=== PATIENT | female | born 1930 | race Caucasian/White ===

== ENCOUNTER 2016-12-05 09:44 | Outpatient (CLI) ==
[2013-04-11 15:55] VITALS: BMI 25.1
[2013-04-13 06:30] VITALS: TEMP 96.9
[2016-12-05 10:11] LABS: BILIRUBIN,URINE Negative (NEGATIVE); KETONES,URINE Negative (NEGATIVE); LEUKOCYTE ESTERASE ,URINE 1+ (NEGATIVE); NITRITE,URINE Positive (NEGATIVE); PH,URINE 6.5 (5-9); PROTEIN,URINE Negative (NEGATIVE); URINE, BLOOD Trace-intact (NEGATIVE)
[2016-12-05 10:12] LABS: ADD URINE MICROSCOPIC YES
[2016-12-05 10:21] LABS: BACTERIA,URINE 2+ (NOT PRESENT)
== END 2016-12-05 09:45 | disposition home or self-care (01) ==
LOC: NONPT 09:44
PROVIDERS: ATTEND Internal Medicine
DX: R41.82 Altered mental status, unspecified (principal); Z79.899 Other long term (current) drug therapy
CPT/HCPCS: 81001; 87086; 87186

== ENCOUNTER 2017-12-04 11:26 | Outpatient (CLI) ==
[2013-04-11 15:55] VITALS: BMI 25.1
[2013-04-13 06:30] VITALS: TEMP 96.9
== END 2017-12-04 11:27 | disposition home or self-care (01) ==
LOC: NONPT 11:26
PROVIDERS: ATTEND Internal Medicine
DX: D64.9 Anemia, unspecified (principal); N18.9 Chronic kidney disease, unspecified; M47.9 Spondylosis, unspecified; Z20.89 Contact with and (suspected) exposure to other communicable diseases
CPT/HCPCS: 81001; 87086

== ENCOUNTER 2019-02-26 18:45 | Emergency (ER) ==
[2019-02-26 19:00] VITALS: BP 140/83; TEMP 97.3; BMI 21.2
--- NOTE | 2019-02-26 19:07 | ED.PDOC ---
General ED Provider: Dr. CORNELIA CUEVAS Chief Complaint: Fall Stated Complaint: 89 yold pat fell forward in a wheelcair,NO LOC,witnessed, Smal lac on thetop of nasal ridge.No active blled.Septum intact.No ano other or clear drainageFace and orbits nornal,No bruising or major swelling.Breathing and speech normal, Time Seen by Physician: 18:55 Information Source: Patient, [facility] Exam Limitations: No limitations Primary Care Provider: TONYA COLLIER Nursing and Triage Documentation Reviewed and Agree: Yes Does patient meet sepsis criteria?: No System Inflammatory Response Syndrome: Not Applicable Sepsis Protocol: For patient's 13 years and over: Temp is 96.8 and below OR 101 and greater Pulse >90 BPM Resp >20/minute Acutely Altered Mental Status Are patient's symptoms suggestive of a new infection, such as: -Pneumonia -Skin, Soft Tissue -Endocarditis -UTI -Bone, Joint Infection -Implantable Device -Acute Abdominal Infection -Wound Infection -Meningitis -Blood Stream Catheter Infection -Unknown Trauma/Injury Complaint Exam - Facial Injury Complaint/Exam Location of Pain: Reports: Nose Mechanism of Injury: Reports: Trauma Onset/Duration: today Symptoms Are: Still present Onset of Pain: Reports: Immediate Initial Severity: Mild Current Severity: Mild Location: Reports: Discrete Character: Reports: Aching Alleviating: Reports: Rest Aggravating: Reports: None Associated Signs and Symptoms: Reports: Swelling Facial Findings: Present: Normal findings Differential Diagnoses: Laceration Review of Systems - Review Of Systems Constitutional: Denies: No symptoms Eyes: Reports: Photophobia Ears, Nose, Mouth, Throat: Reports: Nose pain Respiratory: Reports: No symptoms Cardiac: Reports: No symptoms GI: Reports: No symptoms : Reports: No symptoms Musculoskeletal: Reports: No symptoms Neurological: Reports: No symptoms Endocrine: Reports: No symptoms Hematologic/Lymphatic: Reports: No symptoms All Other Systems: Reviewed and Negative Past Medical History - Past Medical History Previously Healthy: Yes Endocrine: Reports: Unknown Cardiovascular: Reports: None Respiratory: Reports: None Hematological: Reports: None Gastrointestinal: Reports: None Genitourinary: Reports: None Neuro/Psych: Reports: None Musculoskeletal: Reports: None Cancer: Reports: None Last Menstrual Period: na - Surgical History General Surgical History: Reports: None - Family History Family History: Reports: None - Social History Smoking Status: Never smoker Hx Substance Use: No Alcohol Screening: None - Immunizations Tetanus Shot up to Date: No (unknown) Physical Exam - Physical Exam Appearance: Well-appearing Ill-appearing: None Pain Distress: None Eyes: DELMER ENT: Ears normal Neck: Supple Respiratory: Airway patent Cardiovascular: RRR, Pulses normal GI/: Soft Musculoskeletal: Normal strength Skin: Warm Neurological: Sensation intact Psychiatric: Affect appropriate Critical Care Note - Critical Care Note Total Time (mins): 0 Course - Course Hematology/Chemistry: 02/26/19 19:22 02/26/19 19:22 Orders, Labs, Meds: Lab Review 02/26/19 02/26/19 02/26/19 19:20 19:22 19:22 WBC 7.06 RBC 3.40 L Hgb 10.0 L Hct 32.5 L MCV 95.6 MCH 29.4 MCHC 30.8 L RDW Coeff of Cecilia 13.3 Plt Count 243 Immature Gran % (Auto) 0.6 Neut % (Auto) 77.6 Lymph % (Auto) 12.9 Aurora % (Auto) 7.1 Eos % (Auto) 1.4 Baso % (Auto) 0.4 Immature Gran # (Auto) 0.0 Neut # (Auto) 5.5 Lymph # (Auto) 0.9 Aurora # (Auto) 0.5 Eos # (Auto) 0.1 Baso # (Auto) 0.0 Sodium 138.4 Potassium 4.05 Chloride 104.3 Carbon Dioxide 25.2 Anion Gap 12.95 BUN 35.0 H Creatinine 1.23 Estimated GFR (MDRD) 41.00 BUN/Creatinine Ratio 28.45 Glucose 128.6 H Calcium 9.01 Total Bilirubin 0.37 AST 21.0 ALT 14.3 Alkaline Phosphatase 113.3 Troponin I < 0.012 Total Protein 6.54 Albumin 4.12 Globulin 2.42 Albumin/Globulin Ratio 1.70 Orders Category Date Time Status EKG-(ED ONLY) Stat CARDIO 02/26/19 19:10 Completed CBC W/ AUTO DIFF Stat LAB 02/26/19 19:22 Completed CMP [COMPREHENSIVE METABOLIC PANEL] Stat LAB 02/26/19 19:22 Completed TROPONIN I Stat LAB 02/26/19 19:20 Completed URINALYSIS C & S IF INDICATED Stat LAB 02/26/19 19:[address] HEAD W/O CONTRAST Stat RADS 04/30/19 19:[address] MAXILLOFACIAL W/O CONTRAST Stat RADS 02/26/19 19:07 Taken Vital Signs: Temp Pulse Resp BP Pulse Ox 02/26/19 18:46 97.3 F L 71 20 140/83 96 Departure - Departure Time of Disposition: 20:53 Disposition: HOME SELF-CARE Discharge Problem: Fall Instructions: Fall Prevention for Older Adults (ED) Condition: Good Pt referred to PMD for follow-up: Yes IPMP verified?: No Allergies/Adverse Reactions: Allergies pravastatin [From Pravachol] Adverse Reaction (Verified 02/26/19 19:17) rosuvastatin [From Crestor] Adverse Reaction (Verified 02/26/19 19:17) Home Medications: Ambulatory Orders Amlodipine Besylate [Norvasc] 10 mg PO BID 04/11/13 Aspirin [Aspirin Chewable] 81 mg PO DAILY 04/11/13 Ferrous Sulfate 325 mg PO DAILY 04/11/13 Losartan/Hydrochlorothiazide [Losartan-Hctz 100-12.5 mg Tab] 1 tab PO DAILY Acetaminophen [Mapap] 500 mg PO Q6HR PRN 02/26/19 Bisacodyl [Dulcolax] 10 mg RC DAILY PRN 02/26/19 Clonidine HCl [Catapres] 0.3 mg PO BID 02/26/19 Dextran 70/Hypromellose [Artificial Tears Eye Drops] 4 drop EACHEYE DIRECTED PRN 02/26/19 Docusate Sodium [Colace] 100 mg PO BID 02/26/19 Magnesium Hydroxide [Milk of Magnesia] 30 ml PO DAILY PRN 02/26/19 Metoprolol Succinate 100 mg PO DAILY 02/26/19 Disposition Discussed With: Patient, Family
--- NOTE | 2019-02-26 20:05 | CT ---
EXAM: CT scan brain without contrast HISTORY: Fall COMPARISON: MRI brain 04/12/2013 FINDINGS: Contiguous axial images obtained from the skull base to the convexities without contrast u tilizing 5-mm collimation. Sagittal and coronal reconstructions were imaged and reviewed.. The vent ricles and CSF spaces are prominent compatible with age appropriate atrophy. There is periventricula r hypodensity noted compatible with chronic microvascular disease.. Mineralization is seen in the bi lateral basal ganglia. There is a partially empty sella. Atherosclerotic changes are seen involving the bilateral vertebral and cavernous internal carotid arteries. The visual this paranasal sinuses and mastoid air cells are clear. Findings compatible with hyperostosis frontalis interna are noted.. 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
--- NOTE | 2019-02-26 21:11 | CT ---
EXAM: CT scan facial bones HISTORY: Trauma COMPARISON: None. FINDINGS: Contiguous axial images obtained through the facial bones without contrast utilizing 3-mm collimation. Sagittal and coronal reconstructions were imaged and reviewed Orbital structures are i ntact. Mucoperiosteal thickening is seen within the right maxillary sinus. . Soft tissue swelling i s seen in relation to the nose. There are nondisplaced bilateral nasal bone fractures. IMPRESSION: Nondisplaced bilateral nasal bone fractures with surrounding soft tissue swelling
== END 2019-02-26 21:23 | disposition home or self-care (01) ==
LOC: ED 18:45
DX: S01.21XA Laceration without foreign body of nose, initial encounter (principal); W05.0XXA Fall from non-moving wheelchair, initial encounter
CPT/HCPCS: 36415; 80053; 84484; 85025; 93005; 93010; 99283

== ENCOUNTER 2019-03-23 19:39 | Outpatient (CLI) ==
[2013-04-13 06:30] VITALS: TEMP 96.9
[2019-03-24 00:12] VITALS: BMI 23.6
== END 2019-03-23 19:45 | disposition short-term general hospital (02) ==
LOC: AMBL 19:39
PROVIDERS: ATTEND Internal Medicine Geriatric Medicine
DX: R55 Syncope and collapse (principal)

== ENCOUNTER 2019-03-23 20:01 | Inpatient (IN) ==
[2019-03-23] MEDS ORDERED: SODIUM CHLORIDE 1,000 ML IV STA (20:02)
--- NOTE | 2019-03-23 20:05 | ED.PDOC ---
General ED Provider: Dr. BOB UNDERWOOD Chief Complaint: Syncope Stated Complaint: Patient is an 89 year old female who comes to the ER sent by her PCP from the [facility] after she was noted to have one episode of unresponsiveness that lasted only few secounds. She has dementia and is a poor historian. [facility] staff did not witness any seizure activity. Has been her normal self all day. Time Seen by Physician: 20:03 Mode of Arrival: Ambulance Information Source: [facility] Exam Limitations: Dementia Primary Care Provider: TONYA COLLIER Nursing and Triage Documentation Reviewed and Agree: Yes Does patient meet sepsis criteria?: No System Inflammatory Response Syndrome: Not Applicable Sepsis Protocol: For patient's 13 years and over: Temp is 96.8 and below OR 101 and greater Pulse >90 BPM Resp >20/minute Acutely Altered Mental Status Are patient's symptoms suggestive of a new infection, such as: -Pneumonia -Skin, Soft Tissue -Endocarditis -UTI -Bone, Joint Infection -Implantable Device -Acute Abdominal Infection -Wound Infection -Meningitis -Blood Stream Catheter Infection -Unknown Review of Systems - Review Of Systems Constitutional: Denies: Chills Cardiac: Reports: Lightheadedness, Syncope All Other Systems: Other (Limited due to dementia) Past Medical History - Past Medical History Previously Healthy: Yes Endocrine: Reports: Unknown Cardiovascular: Reports: Hypertension Respiratory: Reports: None Hematological: Reports: Anemia Gastrointestinal: Reports: GERD, Other (dysphagia ) Genitourinary: Reports: CKD Neuro/Psych: Reports: Anxiety, Dementia Musculoskeletal: Reports: None, Other (spondylosis) Cancer: Reports: None Other Pertinent Past Medical History: macular degeneration - Surgical History General Surgical History: Reports: Unknown - Family History Family History: Reports: None - Social History Smoking Status: Never smoker Hx Substance Use: No Alcohol Screening: None Physical Exam - Physical Exam Appearance: Well-appearing Ill-appearing: None Pain Distress: None Eyes: DELMER (on the left, Catract and opacity on the right ) Neck: Supple Respiratory: Airway patent, Breath sounds clear, Breath sounds equal, Respirations nonlabored Cardiovascular: Bradycardia GI/: Soft Skin: Warm, Dry Psychiatric: Anxious Interpretation - Seamless Hosiery Knitter Time of Seamless Hosiery Knitter Interpretation: 20:00 Rate: John Paul Rhythm: Sinus - EKG Interpretation Time of EKG #1: 20:07 Rate: John Paul Rhythm: Sinus Ectopy: None Blaine: Left 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 Collier Time of Notification: 22:00 (ok to admit. ) Critical Care Note - Critical Care Note Total Time (mins): 35 Course - Course Hematology/Chemistry: 03/23/19 20:20 03/23/19 20:20 Orders, Labs, Meds: Lab Review 03/23/19 03/23/19 03/23/19 20:20 20:20 20:20 WBC 8.72 RBC 3.41 L Hgb 10.2 L Hct 32.9 L MCV 96.5 MCH 29.9 MCHC 31.0 L RDW Coeff of Cecilia 13.7 Plt Count 195 Immature Gran % (Auto) 0.5 Neut % (Auto) 78.3 Lymph % (Auto) 12.8 Swain % (Auto) 6.2 Eos % (Auto) 1.6 Baso % (Auto) 0.6 Immature Gran # (Auto) 0.0 Neut # (Auto) 6.8 Lymph # (Auto) 1.1 Swain # (Auto) 0.5 Eos # (Auto) 0.1 Baso # (Auto) 0.1 Sodium 138.9 Potassium 3.95 Chloride 102.2 Carbon Dioxide 28.6 Anion Gap 12.05 BUN 42.0 H Creatinine 1.21 Estimated GFR (MDRD) 42.00 BUN/Creatinine Ratio 34.71 Glucose 135.7 H Lactic Acid 1.59 Calcium 9.11 Total Bilirubin 0.46 AST 22.0 ALT 16.9 Alkaline Phosphatase 111.9 Total Creatine Kinase < 20.0 L Troponin I < 0.012 NT-Pro-B Natriuret Pep Total Protein 6.41 Albumin 3.83 Globulin 2.58 Albumin/Globulin Ratio 1.48 Procalcitonin 03/23/19 03/23/19 20:20 20:20 WBC RBC Hgb Hct MCV MCH MCHC RDW Coeff of Cecilia Plt Count Immature Gran % (Auto) Neut % (Auto) Lymph % (Auto) Swain % (Auto) Eos % (Auto) Baso % (Auto) Immature Gran # (Auto) Neut # (Auto) Lymph # (Auto) Swain # (Auto) Eos # (Auto) Baso # (Auto) Sodium Potassium Chloride Carbon Dioxide Anion Gap BUN Creatinine Estimated GFR (MDRD) BUN/Creatinine Ratio Glucose Lactic Acid Calcium Total Bilirubin AST ALT Alkaline Phosphatase Total Creatine Kinase Troponin I NT-Pro-B Natriuret Pep 1490.000 H Total Protein Albumin Globulin Albumin/Globulin Ratio Procalcitonin < 0.05 Orders Category Date Time Status EKG-(ED ONLY) Stat CARDIO 03/23/19 20:02 Completed ED GLOBAL ENGINEERING MANAGER APPLIED .ONCE EMERGENCY 03/23/19 20:02 Active ED IV/MEDIPORT/POWERPORT .ONCE EMERGENCY 03/23/19 20:02 Active CBC W/ AUTO DIFF Stat LAB 03/23/19 20:20 Completed COMPREHENSIVE METABOLIC PANEL Stat LAB 03/23/19 20:20 Completed CREATINE KINASE Stat LAB 03/23/19 20:20 Completed LACTIC ACID Stat LAB 03/23/19 20:20 Completed NT-PROBNP Stat LAB 03/23/19 20:20 Completed PROCALCITONIN Stat LAB 03/23/19 20:20 Completed TROPONIN I Stat LAB 03/23/19 20:20 Completed 0.9 % Sodium Chloride [Saline Flush] MEDS 03/23/19 20:02 Ordered 1 syr IVF PRN PRN Sodium Chloride 0.9% [Sodium Chloride] 1,000 ml MEDS 03/23/19 20:02 Active IV 125 mls/hr CHEST, 1V AP ONLY Stat RADS 03/23/19 20:[address] HEAD W/O CONTRAST Stat RADS 03/23/19 20:02 Completed Medications Generic Name Dose Route Start Last Admin Trade Name Freq PRN Reason Stop Dose Admin Sodium Chloride 1,000 mls @ 125 mls/hr 03/23/19 20:02 03/23/19 20:45 Sodium Chloride IV 03/24/19 04:01 125 mls/hr .Q8H STA Administration Sodium Chloride 1 syr 03/23/19 20:02 03/23/19 20:46 Saline Flush IVF 1 syr PRN PRN Administration To flush IV Vital Signs: Temp Pulse Resp BP Pulse Ox 03/23/19 20:01 97.5 F L 56 L 18 124/55 L 95 Departure - Departure Time of Disposition: 22:50 Disposition: TSF SHORT-TRM HOSP Discharge Problem: Syncope Condition: Stable Pt referred to PMD for follow-up: Yes IPMP verified?: No Allergies/Adverse Reactions: Allergies pravastatin [From Pravachol] Adverse Reaction (Verified 03/23/19 20:15) rosuvastatin [From Crestor] Adverse Reaction (Verified 03/23/19 20:15) Home Medications: Ambulatory Orders Amlodipine Besylate [Norvasc] 10 mg PO DAILY 04/11/13 Aspirin [Aspirin Chewable] 81 mg PO DAILY 04/11/13 Losartan/Hydrochlorothiazide [Losartan-Hctz 100-12.5 mg Tab] 1 tab PO DAILY Acetaminophen [Mapap] 500 mg PO Q6HR PRN 02/26/19 Bisacodyl [Dulcolax] 10 mg RC DAILY PRN 02/26/19 Clonidine HCl [Catapres] 0.3 mg PO BID 02/26/19 Magnesium Hydroxide [Milk of Magnesia] 30 ml PO DAILY PRN 02/26/19 Metoprolol Succinate [Toprol Xl] 100 mg PO DAILY 03/23/19 Polyvinyl Alcohol [Artificial Tears Opth Mandie] 4 drop EACHEYE DIRECTED PRN Disposition Discussed With: Family
--- NOTE | 2019-03-23 20:47 | CT ---
EXAM: CT brain without contrast HISTORY: Syncope TECHNIQUE: CT of the brain without intravenous contrast FINDINGS: There is no acute hemorrhage midline shift or mass effect. No hydrocephalus or abnormal e xtra-axial fluid collection. Generalized involutional atrophy, moderate. Chronic microvascular thompson ges white matter tracts, severe. No acute large vessel territorial infarct is seen. Prominent basil ganglia mineralization. The bony cranium appears normal. The visualized paranasal sinuses are otilia r. Soft tissues without significant abnormality. IMPRESSION: 1. Chronic changes as described. No acute intracranial abnormality is seen.
--- NOTE | 2019-03-23 22:10 | DI ---
EXAM: Portable chest HISTORY: Syncope COMPARISON: Two-view chest 04/11/2013 FINDINGS: The patient is mildly rotated to the left. The heart is normal in size. Atherosclerotic changes are seen involving the aortic arch. Minimal opacity is noted at the left lung base which may be atelectasis and/or pneumonia. They are benign granulomatous changes. IMPRESSION: ASVD. Minimal left basilar opacity which to atelectasis and/or pneumonia
[2019-03-23] MEDS ORDERED: MILK OF MAGNESIA PO PRN (22:42)
[2019-03-23] MEDS ORDERED: DULCOLAX RC PRN (22:42)
[2019-03-23] MEDS ORDERED: TYLENOL PO PRN (22:42)
[2019-03-23] MEDS ORDERED: ARTIFICIAL TEARS OPTH SOL OP PRN (22:42)
[2019-03-24 00:12] VITALS: BMI 23.6
[2019-03-24] MEDS ORDERED: CATAPRES PO SCH (09:00)
[2019-03-24] MEDS ORDERED: NORVASC PO SCH (09:00)
[2019-03-24] MEDS ORDERED: NON-FORMULARY MEDICATION (Metoprolol Succinate [Toprol Xl] 100 MG) PO SCH (09:00)
[2019-03-24] MEDS ORDERED: LOVENOX SUBCUT SCH (09:00)
[2019-03-24] MEDS ORDERED: NON-FORMULARY MEDICATION (Losartan/Hydrochlorothiazide [Losartan-Hctz 100-12.5 Mg Tab] 1 T PO SCH (09:00)
[2019-03-24] MEDS: LOVENOX SUBCUT SCH (09:25)
[2019-03-24] MEDS ORDERED: NON-FORMULARY MEDICATION (Clonidine Hcl [Clonidine Hcl] 0.3 MG) PO SCH (10:30)
[2019-03-24] MEDS ORDERED: NON-FORMULARY MEDICATION (Amlodipine Besylate [Norvasc] 10 MG) PO SCH (10:30)
[2019-03-24] MEDS ORDERED: NON-FORMULARY MEDICATION (Losartan/Hydrochlorothiazide [Hyzaar 100-25 Tablet] 1 EACH) PO SCH (11:15)
[2019-03-24] MEDS: ASPIRIN CHEWABLE PO SCH (11:23)
[2019-03-24] MEDS ORDERED: DULCOLAX RC PRN (11:30)
[2019-03-24] MEDS ORDERED: MILK OF MAGNESIA PO PRN (11:30)
[2019-03-24] MEDS: CATAPRES PO SCH (23:59)
[2019-03-25] MEDS ORDERED: ASPIRIN CHEWABLE PO SCH (08:00)
[2019-03-25] MEDS: HYZAAR 50-12.5 MG TAB PO SCH (09:19)
[2019-03-25] MEDS: CATAPRES PO SCH ×2 (09:19→21:48)
[2019-03-25] MEDS: ASPIRIN CHEWABLE PO SCH (09:19)
[2019-03-25] MEDS: NORVASC PO SCH (09:19)
[2019-03-25] MEDS: TOPROL XL PO SCH (09:19)
[2019-03-25] MEDS: LOVENOX SUBCUT SCH (09:20)
[2019-03-25] MEDS ORDERED: ROCEPHIN 1 GM in SODIUM CHLORIDE 50 ML IM SCH (12:30)
[2019-03-25] MEDS ORDERED: ROCEPHIN 1 GM in SODIUM CHLORIDE 50 ML IV SCH (12:30)
[2019-03-25] MEDS ORDERED: ROCEPHIN ONE (15:21)
[2019-03-25] MEDS ORDERED: LIDOCAINE HCL 1% SDV ONE (15:22)
[2019-03-25] MEDS ORDERED: LIDOCAINE HCL 1% SDV IM STA (15:26)
[2019-03-25] MEDS: SODIUM CHLORIDE 1,000 ML IV SCH (15:26)
[2019-03-25] MEDS: ROCEPHIN IM SCH (15:28)
[2019-03-26 06:08] VITALS: BP 122/72; TEMP 98.4
[2019-03-26] MEDS: ASPIRIN CHEWABLE PO SCH (09:36)
[2019-03-26] MEDS: HYZAAR 50-12.5 MG TAB PO SCH (09:36)
[2019-03-26] MEDS: TOPROL XL PO SCH (09:37)
[2019-03-26] MEDS: CATAPRES PO SCH ×2 (09:37→20:59)
[2019-03-26] MEDS: NORVASC PO SCH (09:37)
[2019-03-26] MEDS: ROCEPHIN IM SCH (09:38)
[2019-03-26] MEDS: LIDOCAINE HCL 1% SDV IM SCH (09:38)
[2019-03-26] MEDS: LOVENOX SUBCUT SCH (09:39)
--- NOTE | 2019-03-26 10:24 | PCM.PROG ---
Attending Provider: ATTENDING PROVIDER: Dr. TONYA COLLIER This patient is seen with Renu Sexton, Nurse Practitioner. DATE OF SERVICE: 03/26/19 SUBJECTIVE: This 89 year old WHITE/ F was hospitalized 03/23/19. The patient is resting comfortably. The patient has advancing dementia and will not leave IV site alone. Will do carotid scan today. REVIEW OF SYSTEMS: CONSTITUTIONAL: Weakness. No night sweats. No malaise, lethargy. No fever or chills. HEENT: Eyes: No visual changes. No eye pain. No eye discharge. ENT: No runny nose. No epistaxis. No sinus pain. No odynophagia. No congestion. RESPIRATORY: No cough, no congestion. No hemoptysis. No shortness of breath. CARDIOVASCULAR: No angina symptoms. No CHF symptoms. No atypical chest pain for CAD. No palpitations. No orthopnea.. GASTROINTESTINAL: No abdominal pain. No nausea or vomiting. No diarrhea or constipation. No hematemesis. No hematochezia. GENITOURINARY: No urgency. No frequency. No dysuria. No hematuria. No obstructive symptoms. No discharge. No pain. No significant abnormal bleeding. MUSCULOSKELETAL: No musculoskeletal pain; no joint swelling. NEUROLOGICAL: Awake, confusion. No headache. No neck pain. No syncope. No seizures. No dizziness. PSYCHIATRIC: Anxious. No depression. No suicidal thoughts. No homicidal thoughts. SKIN: No rash. No lesions. No wounds. ENDOCRINE: No unexplained weight loss. No weight gain. HEMATOLOGIC/LYMPHATIC: No anemia. No purpura. No petechiae. No prolonged or excessive bleeding. No palpable lymph nodes. PHYSICAL EXAMINATION: GENERAL: The patient is awake, alert, disoriented lying in bed in no distress. VITAL SIGNS: Temperature 98.4 F, Pulse 80, Respiratory Rate 18, BP 122/72, Pulse Ox 97% HEENT: Head normocephalic, atraumatic. Eyes: Extraocular muscles are intact. Pupils are equal, round and reactive to light and accommodation. Ears: No lesions. Nose appeared normal. Throat: No exudate or erythema. NECK: Supple. No JVD, no carotid bruit. No lymphadenopathy or thyromegaly. LUNGS: Diminished breath sounds. Clear to auscultation. Percussion note normal. Chest symmetrical. HEART: S1, S2, no S3. Grade I/ systolic murmur. No cyanosis or clubbing. No ascites. Pulses: Dorsalis pedis and posterior tibial pulses +1 to +2 both sides. ABDOMEN: Soft. Non-tender. Bowel sounds active. No CVA tenderness. No mass felt. EXTREMITIES: No edema. Full range of motion of all extremities, equal. NEUROLOGIC: No focal deficit. Cranial nerves II through XII are grossly intact. No headache, no double vision or headache. SKIN: Not dry. Intact. Turgor-normal. LYMPHATIC: No palpable lymph nodes/no lymphedema. MUSCULOSKELETAL: Normal joints with no swelling. Muscle tone is normal. LAB REVIEW: 03/26/19 05:00 03/26/19 05:00 03/26/19 05:00: Sodium 139.4, Potassium 4.10, Chloride 103.0, Carbon Dioxide 29.2, Anion Gap 11.30, BUN 19.6 H, Creatinine 1.11, Estimated GFR (MDRD) 46.00, BUN/Creatinine Ratio 17.65, Glucose 110.9 H, Calcium 9.31, Total Bilirubin 0.52 , AST 23.0, ALT 15.4, Alkaline Phosphatase 115.2, Total Protein 6.84, Albumin 3.99, Globulin 2.85, Albumin/Globulin Ratio 1.40 03/26/19 05:00: WBC 7.91, RBC 3.72 L, Hgb 11.2 L, Hct 35.8 L, MCV 96.2, MCH 30.1 , MCHC 31.3 L, RDW Coeff of Cecilia 13.2, Plt Count 220, Immature Gran % (Auto) 0.4 , Neut % (Auto) 71.1, Lymph % (Auto) 19.8, Edwards % (Auto) 5.9, Eos % (Auto) 2.3, Baso % (Auto) 0.5, Immature Gran # (Auto) 0.0, Neut # (Auto) 5.6, Lymph # (Auto ) 1.6, Edwards # (Auto) 0.5, Eos # (Auto) 0.2, Baso # (Auto) 0.0 ASSESSMENT: 1. UTI - E. coli. 2. Questionable syncopal episode. 3. Hypertension. 4. Dementia with behavioral disturbances. PLAN: 1. Continue IM Rocephin. 2. Carotid scan. Plan and coordination of the patient's care discussed in the presence of Cotton Program Technician and nurse. CONDITION: Stable SCRIBED BY: STEPHANIE GOETZ Car Checker scribed while in presence of service performed by Dr. Collier/Renu Sexton APRN on 03/26/19 ([id number])
--- NOTE | 2019-03-26 12:10 | ECHO2D ---
Date of Exam: 03/25/19 Ordering Physician: DR. TONYA COLLIER Room #: 122 Reason for Echo: SYNCOPE M-Mode Normal Adult Results LV Dimensions Normal Adult Results AoV Opening excursions >1.6 >1.6 LVEDD-base- 3.5-5.8 4.3 Ao root dimensions 2.0-3.7 3.1 LVESD-base- 3.1-4.6 L. Atrium dimensions 1.9-3.8 3.8 Post. Wall thickness 0.8-1.1 1.5 IV septum (thickness) 0.7-1.2 1.4 Post. Wall excursion 0.72-1.3 NORMAL Septal motion NORMAL Systolic motion R. Ventricular cavity 1.5-2.0 NORMAL LVEF 60% 67% Paradoxical septal wall motion NORMAL 2-D : 2-D M Mode Echocardiogram was performed using apical four chamber and left parasternal long and short axis views. Mitral, tricuspid and aortic valves appear to be normal. Contractility of the left ventricle seems to be normal, so is the cavity size. Left atrial cavity size and aortic root appear to be normal. There is no pericardial effusion. There is no thrombus noted in the left ventricular or left aortic cavity. No mitral valve prolapse noted. M-MODE: MV: NORMAL AV: NORMAL TV: NORMAL PV: CHAMBER SIZE: NORMAL WALL MOTION: NORMAL PERICARDIUM: NORMAL INTERPRETATION: 1. LEFT VENTRICULAR HYPERTROPHY 2. NORMAL LEFT VENTRICULAR CONTRACTILITY 3. NORMAL VALVES MTDD
--- NOTE | 2019-03-27 09:04 | PCM.PROG ---
Attending Provider: ATTENDING PROVIDER: Dr. TONYA COLLIER This patient is seen with Renu Sexton, Nurse Practitioner. DATE OF SERVICE: 03/27/19 SUBJECTIVE: This 89 year old WHITE/ F was hospitalized 03/23/19. The patient is lying in bed resting comfortably. No fever. The patient was uncooperative and would not allow for carotid scan and also would not leave telemetry on due to dementia. She has been eating well. REVIEW OF SYSTEMS: CONSTITUTIONAL: Weakness. No night sweats. No malaise, lethargy. No fever or chills. HEENT: Eyes: No visual changes. No eye pain. No eye discharge. ENT: No runny nose. No epistaxis. No sinus pain. No odynophagia. No congestion. RESPIRATORY: No cough, no congestion. No hemoptysis. No shortness of breath. CARDIOVASCULAR: No angina symptoms. No CHF symptoms. No atypical chest pain for CAD. No palpitations. No orthopnea.. GASTROINTESTINAL: No abdominal pain. No nausea or vomiting. No diarrhea or constipation. No hematemesis. No hematochezia. GENITOURINARY: No urgency. No frequency. No dysuria. No hematuria. No obstructive symptoms. No discharge. No pain. No significant abnormal bleeding. MUSCULOSKELETAL: No musculoskeletal pain; no joint swelling. NEUROLOGICAL: Awake, alert, confused. No headache. No neck pain. No syncope. No seizures. No dizziness. PSYCHIATRIC: Not anxious. No depression. No suicidal thoughts. No homicidal thoughts. SKIN: No rash. No lesions. No wounds. ENDOCRINE: No unexplained weight loss. No weight gain. HEMATOLOGIC/LYMPHATIC: No anemia. No purpura. No petechiae. No prolonged or excessive bleeding. No palpable lymph nodes. PHYSICAL EXAMINATION: GENERAL: The patient is awake, oriented to person only, lying in bed in no distress. VITAL SIGNS: Temperature 98.4 F, Pulse 60, Respiratory Rate 18, BP 122/72, Pulse Ox 98% HEENT: Head normocephalic, atraumatic. Eyes: Extraocular muscles are intact. Pupils are equal, round and reactive to light and accommodation. Ears: No lesions. Nose appeared normal. Throat: No exudate or erythema. NECK: Supple. No JVD, no carotid bruit. No lymphadenopathy or thyromegaly. LUNGS: Diminished breath sounds. Clear to auscultation. Percussion note normal. Chest symmetrical. HEART: S1, S2, no S3. No murmurs. No cyanosis or clubbing. No ascites. Pulses: Dorsalis pedis and posterior tibial pulses +1 to +2 both sides. ABDOMEN: Soft. Non-tender. Bowel sounds active. No CVA tenderness. No mass felt. EXTREMITIES: No edema. Full range of motion of all extremities, equal. NEUROLOGIC: No focal deficit. Cranial nerves II through XII are grossly intact. No headache, no double vision or headache. SKIN: Not dry. Intact. Turgor-normal. LYMPHATIC: No palpable lymph nodes/no lymphedema. MUSCULOSKELETAL: Normal joints with no swelling. Muscle tone is normal. LAB REVIEW: 03/27/19 05:00 03/27/19 05:00 03/27/19 05:00: Sodium 138.0, Potassium 3.87, Chloride 101.6, Carbon Dioxide 29.1, Anion Gap 11.17, BUN 19.0 H, Creatinine 1.07, Estimated GFR (MDRD) 48.00, BUN/Creatinine Ratio 17.75, Glucose 109.1 H, Calcium 8.91, Total Bilirubin 0.42 , AST 23.4, ALT 13.6, Alkaline Phosphatase 106.8, Total Protein 6.29 L, Albumin 3.61, Globulin 2.68, Albumin/Globulin Ratio 1.34 03/27/19 05:00: WBC 5.66, RBC 3.34 L, Hgb 10.0 L, Hct 31.6 L, MCV 94.6, MCH 29.9 , MCHC 31.6 L, RDW Coeff of Cecilia 13.2, Plt Count 181, Immature Gran % (Auto) 0.2 , Neut % (Auto) 69.4, Lymph % (Auto) 21.0, Rutherford % (Auto) 6.4, Eos % (Auto) 2.3, Baso % (Auto) 0.7, Immature Gran # (Auto) 0.0, Neut # (Auto) 3.9, Lymph # (Auto ) 1.2, Rutherford # (Auto) 0.4, Eos # (Auto) 0.1, Baso # (Auto) 0.0 ASSESSMENT: 1. UTI - E. coli. 2. Questionable syncopal episode. 3. Hypertension. 4. Dementia with behavioral disturbances. PLAN: 1. D/C to [facility]. 2. CBC, CMP in one week. 3. Keflex 500 mg t.i.d. times five days. Plan and coordination of the patient's care discussed in the presence of Railroad Operating Engineer and nurse. CONDITION: STABLE SCRIBED BY: STEPHANIE GOETZ Sewing Machines Salesperson scribed while in presence of service performed by Dr. Collier/Renu Sexton APRN on 03/27/19 ([id number])
[2019-03-27] MEDS: ASPIRIN CHEWABLE PO SCH (09:47)
[2019-03-27] MEDS: TOPROL XL PO SCH (09:47)
[2019-03-27] MEDS: LOVENOX SUBCUT SCH (09:48)
[2019-03-27] MEDS: CATAPRES PO SCH (09:48)
[2019-03-27] MEDS: NORVASC PO SCH (09:48)
[2019-03-27] MEDS: HYZAAR 50-12.5 MG TAB PO SCH (09:48)
[2019-03-27] MEDS: ROCEPHIN IM SCH (09:52)
[2019-03-27] MEDS: LIDOCAINE HCL 1% SDV IM SCH (09:52)
--- NOTE | 2019-03-27 12:59 | CM.DICTOOL ---
ADMISSION: 03/23/19 22:36 DISCHARGE: MARCH 27, 2019 DATE OF SERVICE: 03/27/19 FINAL DIAGNOSIS UTI, E-COLI ORGANISM SYNCOPAL EPISODE HYPERTENSION DEMENTIA GERD ANEMIA CHRONIC KIDNEY DISEASE MACULAR DEGENERATION DJD SPINE TKR, RIGHT CHOLECYSTECTOMY HYSTERECTOMY LAST VITALS Temp Pulse Resp BP Pulse Ox 98.4 F 60 18 122/72 98 03/26/19 06:00 03/27/19 08:00 03/27/19 06:00 03/26/19 06:00 03/26/19 14:00 TAKE THESE MEDICATIONS AT HOME Acetaminophen (Tylenol) 500 mg PO Q6HR PRN PRN Reason: fever Amlodipine Besylate (Norvasc) 10 mg PO DAILY [facility] Last Admin: 03/26/19 09:37 Dose: 10 mg Artificial Tears (Artificial Tears Opth Mandie) 4 drop OP DIRECTED PRN PRN Reason: Dry eyes Aspirin (Aspirin Chewable) 81 mg PO DAILYWM [facility] Last Admin: 03/26/19 09:36 Dose: 81 mg Bisacodyl (Dulcolax) 10 mg RC DAILY PRN PRN Reason: constipation Clonidine (Catapres) 0.3 mg PO BID [facility] Last Admin: 03/26/19 20:59 Dose: 0.3 mg HCTZ/Losartan Potassium (Hyzaar 50-12.5 Mg Tab) 2 tab PO DAILY [facility] Last Admin: 03/26/19 09:36 Dose: 2 tab Magnesium Hydroxide (Milk Of Magnesia) 30 ml PO DAILY PRN PRN Reason: constipation Metoprolol Succinate (Toprol Xl) 100 mg PO DAILY [facility] Last Admin: 03/26/19 09:37 Dose: 100 mg Keflex 500 mg PO TID FOR FIVE DAYS FIRST DOSE 03/28/2019 ALLERGIES pravastatin [From Pravachol] Adverse Reaction (Verified 03/23/19 20:15) rosuvastatin [From Crestor] Adverse Reaction (Verified 03/23/19 20:15) DISCONTINUED MEDICATIONS NONE NEW PRESCRIPTIONS: KEFLEX 500 MG PO TAKE ONE TABLET BY MOUTH THREE TIMES A DAY FOR FIVE DAYS FIRST DOSE 03/28/2019 SMOKING: NON SMOKER DISEASE SPECIFIC EDUCATION: SYNCOPE UTI [facility]EL[facility]EX LAB REVIEW: 03/27/19 05:00 03/27/19 05:00 03/27/19 05:00: Sodium 138.0, Potassium 3.87, Chloride 101.6, Carbon Dioxide 29.1, Anion Gap 11.17, BUN 19.0 H, Creatinine 1.07, Estimated GFR (MDRD) 48.00, BUN/Creatinine Ratio 17.75, Glucose 109.1 H, Calcium 8.91, Total Bilirubin 0.42 , AST 23.4, ALT 13.6, Alkaline Phosphatase 106.8, Total Protein 6.29 L, Albumin 3.61, Globulin 2.68, Albumin/Globulin Ratio 1.34 03/27/19 05:00: WBC 5.66, RBC 3.34 L, Hgb 10.0 L, Hct 31.6 L, MCV 94.6, MCH 29.9 , MCHC 31.6 L, RDW Coeff of Cecilia 13.2, Plt Count 181, Immature Gran % (Auto) 0.2 , Neut % (Auto) 69.4, Lymph % (Auto) 21.0, Cook % (Auto) 6.4, Eos % (Auto) 2.3, Baso % (Auto) 0.7, Immature Gran # (Auto) 0.0, Neut # (Auto) 3.9, Lymph # (Auto ) 1.2, Cook # (Auto) 0.4, Eos # (Auto) 0.1, Baso # (Auto) 0.0 PLAN: DISCHARGE TO [facility] TODAY MARCH 27, 2019 DIET: REGULAR WITH REGULAR CONSISTENCY AND THIN LIQUIDS ACTIVITY: UP TO DINING ROOM FOR MEALS VITAL SIGNS DAILY FOR ONE WEEK, THEN WEEKLY CBC AND CMP IN ONE WEEK CBC, CMP EVERY 3 MONTHS LIPIDS, TSH EVERY 6 MONTHS PT/OT EVAL AND TREAT INCONTINENT CARE NEEDED DECUBITUS PRECAUTIONS NEEDED MAY PARTICIPATE IN CARE HOME ACTIVITIES PATIENT TO BE SEEN ON CARE HOME ROUNDS BY RENU VEGA APRN IN 7-10 DAYS CODE STATUS: DNR ALERT TO PERSON ONLY. SPOKE WITH MS. MCPHERSON'S DAUGHTER; CAYDEN, SHE IS AWARE OF DISCHARGE BACK TO [facility] TODAY. SPEECH IS MUMBLED. MS. MCPHERSON IS RESISTIVE TO CARE DUE TO HER DEMENTIA. SHE REQUIRES ASSISTANCE WITH ALL ACTIVITIES, EVEN FEEDING. SHE TRANSFERS FROM BED TO CHAIR WITH ASSIST OF TWO STAFF. SHE IS INCONTINENT OF BOWEL AND BLADDER. APPETITE IS FAIR TO GOOD. SKIN IS INTACT WITH ECCHYMOSIS NOTED TO UPPER EXTREMITIES. Gasper Daugherty M.D. Renu Vega APRN
--- NOTE | 2019-03-29 12:59 | DS ---
DATE OF SERVICE: 03/27/19 FINAL DIAGNOSIS: 1.UTI, E-COLI ORGANISM 2.SYNCOPAL EPISODE 3.HYPERTENSION 4.DEMENTIA 5.GERD 6.ANEMIA 7.CHRONIC KIDNEY DISEASE 8.MACULAR DEGENERATION 9.DJD SPINE 10.TKR, RIGHT 11.CHOLECYSTECTOMY 12.HYSTERECTOMY LAST VITALS: Temp Pulse Resp BP Pulse Ox 98.4 F 60 18 122/72 98 03/26/19 06:00 03/27/19 08:00 03/27/19 06:00 03/26/19 06:00 03/26/19 14:00 DISCHARGE INSTRUCTIONS: DISCHARGE TO [facility] TODAY MARCH 27, 2019. VITAL SIGNS DAILY FOR ONE WEEK, THEN WEEKLY. CBC AND CMP IN ONE WEEK, CBC, CMP EVERY 3 MONTHS, LIPIDS, TSH EVERY 6 MONTHS, PT/OT EVAL AND TREAT, INCONTINENT CARE NEEDED, DECUBITUS PRECAUTIONS NEEDED, MAY PARTICIPATE IN RETIREMENT ACTIVITIES. PATIENT TO BE SEEN ON RETIREMENT ROUNDS BY GHISLAINE VEGA APRN IN 7-10 DAYS. CODE STATUS: DNR. TAKE THESE MEDICATIONS AT HOME: Acetaminophen (Tylenol) 500 mg PO Q6HR PRN Amlodipine Besylate (Norvasc) 10 mg PO DAILY [facility] Artificial Tears (Artificial Tears Opth Mandie) 4 drop OP DIRECTED PRN Aspirin (Aspirin Chewable) 81 mg PO DAILYWM [facility] Bisacodyl (Dulcolax) 10 mg RC DAILY PRN Clonidine (Catapres) 0.3 mg PO BID [facility] HCTZ/Losartan Potassium (Hyzaar 50-12.5 Mg Tab) 2 tab PO DAILY [facility] Magnesium Hydroxide (Milk Of Magnesia) 30 ml PO DAILY PRN Metoprolol Succinate (Toprol Xl) 100 mg PO DAILY [facility] Keflex 500 mg PO TID FOR FIVE DAYS ALLERGIES: pravastatin [From Pravachol] Adverse Reaction (Verified 03/23/19 20:15) rosuvastatin [From Crestor] Adverse Reaction (Verified 03/23/19 20:15) DISCONTINUED MEDICATIONS: NONE NEW PRESCRIPTIONS: KEFLEX 500 MG PO TAKE ONE TABLET BY MOUTH THREE TIMES A DAY FOR FIVE DAYS FIRST DOSE 03/28/2019 SMOKING: NON SMOKER DISEASE SPECIFIC EDUCATION: SYNCOPE UTI [facility] DIET: REGULAR WITH REGULAR CONSISTENCY AND THIN LIQUIDS ACTIVITY: UP TO DINING ROOM FOR MEALS HOSPITAL COURSE: This is a white female who was a resident of [facility]. She had a questionable syncopal episode and slide out of her wheelchair. She was brought to the emergency room. U/A was abnormal and culture showed UTI with e- coli which was susceptible to Rocephin. She was admitted and placed on routine telemetry orders, IV fluids at 75cc hour. Her kidney function was slightly elevated. She does have a history of chronic kidney disease. She has severe dementia. A CAT scan of the brain was normal with no acute process. We did order a carotis stenosis and she did not cooperate as she is too confused so we were unable to do this. The daughter was present and we decided that it was acceptable we did proceed with the Carotid scan as given her age and advancing dementia we would not intervene if there were any blockage. We did treat the UTI with Rocephin. We [facility] on Keflex 500mg three times a day for the next 5 days as she did receive 5 doses of Rocephin in the hospital. Upon discharge vital signs are normal; temperature 98.4, heart rate 60, respiratory rate 18, blood pressure 122/72 . Hgb 10, hct 31 , BUN 19, creatinine 1.07. We will discharge her in stable condition with a repeat CBC and CMP in one week and I will follow with her at the prison. TIME SPENT: More than 60 minutes. MELODY
--- NOTE | 2019-03-29 13:50 | HP ---
DATE OF SERVICE: 03/24/19 HISTORY OF PRESENT ILLNESS: 89-year-old white female, a resident of the shelter, passed out in the chair. The nurse in the shelter called me. The patient was taken to the bed where she started responding. According to the shelter nurse, thought patient had because she looked pale and was not responding at all with practically no pulse, no blood pressure. The patient was brought to the emergency room where she was responding, was awake. Except for creatinine 1.1, BUN 42 and mild anemia, the patient did not have any abnormality on chest x-ray , EKG, telemetry, CMP or glucose level. The patient was hospitalized for further evaluation for syncope. PAST MEDICAL HISTORY: Dementia Hypertension Chronic anemia REVIEW OF SYSTEMS: - unable to get from the patient but the patient doesn't seem to be in distress. CONSTITUTIONAL: Fatigue and tired. No night sweats. No malaise, lethargy. No fever or chills. HEENT: Eyes: No visual changes. No eye pain. No eye discharge. ENT: No runny nose. No epistaxis. No sinus pain. No sore throat. No odynophagia. No ear pain. No congestion. RESPIRATORY: No cough, no congestion. No hemoptysis. No shortness of breath. CARDIOVASCULAR: No angina symptoms. No CHF symptoms. Denies any chest pain for CAD. No palpitations. No PND. No orthopnea. GASTROINTESTINAL: No abdominal pain. No nausea or vomiting. No diarrhea or constipation. No hematemesis. No hematochezia. GENITOURINARY: No urgency. No frequency. No dysuria. No hematuria. No obstructive symptoms. No discharge. No pain. No significant abnormal bleeding. MUSCULOSKELETAL: No musculoskeletal pain. No joint swelling. No arthritis. NEUROLOGICAL: Mental status - she is confused. No headache. No neck pain. No syncope. No seizures. No dizziness. PSYCHIATRIC: Not anxious. No depression. No suicidal thoughts. No homicidal thoughts. SKIN: No rash. No lesions. No wounds. ENDOCRINE: No unexplained weight loss. No weight gain. HEMATOLOGIC/LYMPHATIC: No anemia. No purpura. No petechiae. No prolonged or excessive bleeding. No palpable lymph nodes. PERSONAL/FAMILY/SOCIAL HISTORY: The patient is , has dementia. She needs help for most activities of daily living. Nonsmoker. No alcohol abuse. She is a resident of the shelter. Good family support. MEDICATIONS: Amlodipine 10 mg p.o. daily Aspirin 81 mg p.o. daily Hyzaar 100/12.5 daily Bisacodyl Clonidine 0.3 twice a day Metoprolol 100 mg daily ALLERGIES: PRAVASTATIN, ROSUVASTATIN PHYSICAL EXAMINATION: GENERAL: The patient is confused, doesn't seem in distress. VITAL SIGNS: Temperature 97.8, pulse 60, respiratory rate 16, blood pressure 112 /70, pulse ox 95%. HEENT: Face is symmetrical. Head normocephalic, atraumatic. Eyes: Extraocular muscles are intact. Pupils are equal, round and reactive to light and accommodation. Ears: No lesions. Nose appeared normal. Throat: No exudate or erythema. NECK: Supple. No JVD, no carotid bruit. No lymphadenopathy or thyromegaly. LUNGS: Decreased breath sounds. Clear to auscultation. Percussion note normal. Chest symmetrical. HEART: S1, S2, no S3. No murmurs. No cyanosis or clubbing. No ascites. Pulses: Dorsalis pedis and posterior tibial pulses +1 to +2 bilaterally. ABDOMEN: Soft. Nontender. Bowel sounds active. No CVA tenderness. No mass felt. EXTREMITIES: No edema. Full range of motion of all extremities, equal. NEUROLOGIC: Mental status - confused. Face is normal. No focal deficit. Cranial nerves II through XII are grossly intact. No headache, no double vision or headache. SKIN: Skin is dry. Mucous membranes dry. Intact. Turgor - normal. LYMPHATIC: No palpable lymph nodes/no lymphedema. MUSCULOSKELETAL: Normal joints with no swelling. Muscle tone is normal. Creatinine 1.1, BUN 40 on admission. Hemoglobin 9.4, hematocrit 30, WBC 6,000, normal differential. Chest x-ray unremrkable. ASSESSMENT: 1. Syncope, etiology unknown. 2. Renal azotemia/dehydration. 3. Dementia. 4. Anemia. 5. History of hypertension. PLAN: 1. Continue all the medications. 2. Monitor neurological status. 3. Telemetry. 4. Echocardiogram. The patient's family does not want her to be resuscitated. She is DNR. The patient's daughter is in the room and talked to her. The patient's daughter doesn't want her to have any further workup. TIME SPENT: More than 70 minutes. MTDD
--- NOTE | 2019-03-29 13:56 | PN ---
DATE OF SERVICE: 03/25/19 SUBJECTIVE: 89-year-old white female hospitalized with syncope. The patient also has urinary tract infection, Gram negative rods, culture available today. REVIEW OF SYSTEMS: CONSTITUTIONAL: No night sweats. No fatigue, malaise, lethargy. No fever or chills. HEENT: Eyes: No visual changes. No eye pain. No eye discharge. ENT: No runny nose. No epistaxis. No sinus pain. No sore throat. No odynophagia. No congestion. RESPIRATORY: No cough, no congestion. No hemoptysis. No shortness of breath. CARDIOVASCULAR: No angina symptoms. No CHF symptoms. No atypical chest pain for CAD. No palpitations. No PND. No orthopnea. GASTROINTESTINAL: No abdominal pain. No nausea or vomiting. No diarrhea or constipation. No hematemesis. No hematochezia. GENITOURINARY: No urgency. No frequency. No dysuria. No hematuria. No obstructive symptoms. No discharge. No pain. No significant abnormal bleeding. MUSCULOSKELETAL: No musculoskeletal pain; no joint swelling. NEUROLOGICAL: The patient is demented; alert but confused, somewhat sleepy. No headache. No neck pain. No syncope. No seizures. No dizziness. PSYCHIATRIC: Not anxious. No depression. No suicidal thoughts. No homicidal thoughts. SKIN: No rash. No lesions. No wounds. ENDOCRINE: No unexplained weight loss. No weight gain. HEMATOLOGIC/LYMPHATIC: No anemia. No purpura. No petechiae. No prolonged or excessive bleeding. No palpable lymph nodes. PHYSICAL EXAMINATION: GENERAL: The patient is somewhat sleepy, demented. VITAL SIGNS: Temperature 98.8, pulse 69, respiratory rate 16, blood pressure 120/64, pulse ox 96%. HEENT: Head normocephalic, atraumatic. Eyes: Extraocular muscles are intact. Pupils are equal, round and reactive to light and accommodation. Ears: No lesions. Nose appeared normal. Throat: No exudate or erythema. NECK: Supple. No JVD, no carotid bruit. No lymphadenopathy or thyromegaly. LUNGS: Clear to auscultation. Percussion note normal. Chest symmetrical. HEART: S1, S2, no S3. No murmurs. No cyanosis or clubbing. No ascites. Pulses: Dorsalis pedis and posterior tibial pulses +1 to +2 bilaterally. ABDOMEN: Soft. Nontender. Bowel sounds active. No CVA tenderness. No mass felt. EXTREMITIES: No edema. Full range of motion of all extremities, equal. NEUROLOGIC: All normal except for mental status. No focal deficit. Cranial nerves II through XII are grossly intact. No headache, no double vision or headache. SKIN: Not dry. Intact. Turgor - normal. LYMPHATIC: No palpable lymph nodes/no lymphedema. MUSCULOSKELETAL: Normal joints with no swelling. Muscle tone is normal. LABS: CBC - hemoglobin 9.8, hematocrit 32, WBC 5,800, normal differential. Creatinine 1.1, BUN 25, potassium 3.4, glucose 195, sodium 138. ASSESSMENT: 1. SYNCOPE, ETIOLOGY UNKNOWN. 2. DEHYDRATION WITH NEARING RENAL AZOTEMIA SEEMS TO BE RESOLVING WITH NORMALIZATION OF PRACTICALLY KIDNEY FUNCTIONS. 3. MILD ANEMIA. 4. UTI WITH GRAM NEGATIVE RODS BEING TREATED WITH ROCEPHIN. The patient had an echo done which showed normal LV contractility and enlarged LA cavity, LVH. No thrombus or thrombi noted. TIME SPENT: More than 30 minutes. Plan and coordination of the patient's care discussed in the presence of nurse. MELODY
--- NOTE | 2019-03-29 13:59 | PN ---
DATE OF SERVICE: 03/26/19 SUBJECTIVE: The patient is doing much better. She is more alert, still confused. Syncope, etiology still unknown. No cardiac arrhythmias of any significance noted. Carotid scan is going to be done. Echo practically was normal. Neurological status normal. TIME SPENT: More than 30 minutes. Plan and coordination of the patient's care discussed in the presence of nurse. MELODY
== END 2019-03-27 15:17 | DRG 690 ==
LOC: ED 20:01 → MEDSURG B 22:36 → OBSVTOIN 22:36
PROVIDERS: ADMIT Internal Medicine; ATTEND Internal Medicine
DX: N39.0 Urinary tract infection, site not specified (principal); F03.91 Unspecified dementia, unspecified severity, with behavioral disturbance; B96.20 Unspecified Escherichia coli [E. coli] as the cause of diseases classified elsewhere; E86.0 Dehydration; D64.9 Anemia, unspecified; F41.9 Anxiety disorder, unspecified; I10 Essential (primary) hypertension; K21.9 Gastro-esophageal reflux disease without esophagitis; N18.9 Chronic kidney disease, unspecified; H35.30 Unspecified macular degeneration; M47.9 Spondylosis, unspecified; R42 Dizziness and giddiness
CPT/HCPCS: 36415; 80048; 80053; 81001; 82550; 83605; 83880; 84145; 84484; 85025; 87086; 87186; 93005; 93010; 96360; 96361; 97802; 99285